=== PATIENT | male | born 1975 | race Caucasian/White ===

== ENCOUNTER 2022-02-18 17:14 | Emergency (ER) | payer OTHER ==
[~2022-02-18] VITALS: Ht 190.5 cm; Wt 100.0 kg
[2022-02-18 17:32] VITALS: BP 145/91
[2022-02-18] MEDS ORDERED: CEPH500C2 PO (21:51)
[2022-02-18] MEDS ORDERED: HYDR-3965 PO (21:54)
[2022-02-18] MEDS ORDERED: HYDROcodone/acetaminophen 5mg/325mg tablet PO ONE (22:00)
== END 2022-02-18 22:10 | disposition home or self-care (01) ==
LOC: ER 17:14
DX: S61.213A Laceration without foreign body of left middle finger without damage to nail, initial encounter (principal); Z79.2 Long term (current) use of antibiotics; W45.8XXA Other foreign body or object entering through skin, initial encounter; Y93.89 Activity, other specified; Y92.89 Other specified places as the place of occurrence of the external cause; Y99.8 Other external cause status
CPT/HCPCS: 12001; 73140; 99283